=== PATIENT | female | born 1975 | race Caucasian/White ===

== ENCOUNTER → 2017-05-05 | Day surgery (SDC) | payer OTHER ==
--- NOTE | 2017-05-06 12:14 | PATH ---
Surgical Pathology Report Patient Name: JEREMY HENNESSY [facility]. Rec. #: [id number] /Age/Gender: 1975 (Age: 41) / F Account: [id number] Location: [facility] Taken: 05/05/2017 Received: 05/05/2017 Reported: 05/06/2017 Physicians: Ata Marcos MD Specimen(s) Received A: LEFT BREAST SITE 1, 11 O'CLOCK 10CM FN. B: LEFT BREAST SITE 2, 10 O'CLOCK, 5-2CM FN. C: LEFT BREAST SITE 3, 12:30, 2CM FN. Clinical History US: suspicious Final Diagnosis A. BREAST, LEFT, SITE #1, 11:00, 10 CM FROM NIPPLE, US GUIDED CORE BIOPSY: FIBROCYSTIC CHANGE WITH DUCT DILATATION, FOCAL APOCRINE METAPLASIA AND STROMAL FIBROSIS. B. BREAST, LEFT, SITE #2, 10:00, 5-7 CM FROM NIPPLE, US GUIDED CORE BIOPSY: FIBROCYSTIC CHANGE WITH ADENOSIS, FOCAL APOCRINE METAPLASIA AND STROMAL FIBROSIS. C. BREAST, LEFT, SITE #3, 12:30, 2 CM FROM NIPPLE, US GUIDED CORE BIOPSY: FIBROADENOMA. Electronically Signed Mac Blancas M.D. Gross Description A. Received in formalin labeled "#1 left breast 11:00, 10 cmfn" is a 1.5 x 1.1 x 0.3 cm aggregate of multiple macias-yellow, irregular to cylindrical portions of fibroadipose tissue. The formalin is filtered and the specimen is entirely submitted in one cassette. B. Received in formalin labeled "#2 left breast 10:00, 5-7 cmfn" are 4 macias-yellow, cylindrical portions of fibroadipose tissue ranging from 1.3-2.2 cm in length and averaging 0.1 cm in diameter. The specimens are submitted in toto in one cassette. C. Received in formalin labeled "#3 left breast 12:30, 2 cmfn" is a 1.4 x 1.1 x 0.2 cm aggregate of macias, irregular to cylindrical portions of fibroadipose tissue. The formalin is filtered and the specimen is entirely submitted in one cassette. Time to formalin fixation: 2 minutes Total formalin fixation time: Approximately 9 hours. DL/05/05/2017 paul05/05/2017
== END | disposition home or self-care (01) ==
LOC: FRADUS-SUR 07:48
PROVIDERS: ATTEND Family Medicine
PROC: 0HBU3ZX Excision of Left Breast, Percutaneous Approach, Diagnostic (ICD-10-PCS; principal; 2017-05-05)
DX: N63 Unspecified lump in breast (principal); D24.2 Benign neoplasm of left breast; N60.32 Fibrosclerosis of left breast; N64.89 Other specified disorders of breast
CPT/HCPCS: 19083; 19084; 87899; 88305-TC; A4648; G0206-TC

== ENCOUNTER 2024-03-26 17:48 | Emergency (ER) | payer OTHER ==
[2024-03-26 18:01] VITALS: RESP 20; TEMP 98.3; BMI 27.4
[2024-03-26] MEDS ORDERED: ACETAMINOPHEN INJECTION 100 ML IVPB ONE (19:45)
[2024-03-26 19:51] LABS: BASO % 0.5 % (0-2.0); EOS % 3.1 % (0-4.5); HEMATOCRIT 41.8 % (32.4-45.2); HEMOGLOBIN 14.3 GM/dL (10.7-15.3); LYMPH % 22.4 % (8-40); MCH 30.9 pg (25.7-33.7); MCHC 34.2 g/dl (32.0-36.0); MEAN CELL VOLUME 90.1 fl (80-96); MEAN PLT VOLUME 7.1 fl (7.5-11.1); MONO % 4.6 % (3.8-10.2); NEUT % 69.4 % (42.8-82.8); PLATELET COUNT 319 10^3/uL (134-434); RBC 4.63 M/mm3 (3.60-5.2); RDW 13.1 % (11.6-15.6); WHITE BLOOD COUNT 9.6 K/mm3 (4.0-10.0)
[2024-03-26] MEDS: SODIUM CHLORIDE 0.9% 500 ML INFUS.BAG IV ONE (19:54)
[2024-03-26] MEDS: ACETAMINOPHEN 1000 MG/100 ML BAG IVPB ONE (19:54)
[2024-03-26 19:55] LABS: EPI CELLS 1 /uL (0-25.1); HYALINE CASTS 2 /uL (0-3.1); URINE APPEARANCE CLEAR; URINE BACTERIA 1812 /uL (0-1359); URINE BILIRUBIN NEGATIVE (NEGATIVE); URINE COLOR YELLOW; URINE GLUCOSE (UA) NEGATIVE (NEGATIVE); URINE KETONE NEGATIVE (NEGATIVE); URINE LEUK ESTERASE 3+ (NEGATIVE); URINE NITRITE NEGATIVE (NEGATIVE); URINE PROTEIN NEGATIVE (NEGATIVE); URINE RBC 19 /uL (0-23.9); URINE UROBILINOGEN 0.2 mg/dL (0.2-1.0); URINE WBC 685 /uL (0-25.8)
[2024-03-26 20:07] LABS: POTASSIUM 4.2 mmol/L (3.5-5.1)
[2024-03-26 20:11] LABS: CALCIUM 9.6 mg/dL (8.5-10.1); MAGNESIUM 2.3 mg/dL (1.8-2.4)
[2024-03-26 20:14] LABS: CREATININE 0.8 mg/dL (0.55-1.3)
[2024-03-26 20:16] LABS: BILIRUBIN,TOTAL 0.6 mg/dL (0.2-1); TOT PROT 7.6 g/dl (6.4-8.2)
[2024-03-26] MEDS ORDERED: CEFTRIAXONE 1 GM/50 ML BAG ONE (20:44)
[2024-03-26] MEDS: CEFTRIAXONE 1,000 MG in DEXTROSE 5%-WATER - 50 ML IVPB ONE (20:49)
[2024-03-26 21:09] VITALS: BP 128/79; PULSE 78
== END 2024-03-26 21:27 | disposition home or self-care (01) ==
LOC: JER 17:48
PROC: 3E03329 Introduction of Other Anti-infective into Peripheral Vein, Percutaneous Approach (ICD-10-PCS; principal; 2024-03-26)
PROC: 3E030NZ Introduction of Analgesics, Hypnotics, Sedatives into Peripheral Vein, Open Approach (ICD-10-PCS; 2024-03-26)
DX: N10 Acute pyelonephritis (principal); R10.9 Unspecified abdominal pain; R68.83 Chills (without fever); R00.0 Tachycardia, unspecified; R30.0 Dysuria; R39.15 Urgency of urination
CPT/HCPCS: 36415; 74176-TC; 80053; 81003; 83735; 84703; 85025; 87086; 87186; 99284-25; J0131